=== PATIENT | male | born 1980 ===

== ENCOUNTER 2018-05-11 14:17 | Emergency (ER) | payer BC ==
[2018-05-11] MEDS ORDERED: KETOROLAC 30 MG/ML INJ ONE (16:24)
--- NOTE | 2018-05-11 16:34 | RAD REPORT ---
EXAM DESCRIPTION: RAD - Chest Single View - 05/11/2018 3:49 pm CLINICAL HISTORY: Persistent chest pain following trauma COMPARISON: None. TECHNIQUE: AP portable chest image was obtained 1534 hours . FINDINGS: Lungs are clear. Heart and vasculature are normal. No measurable pleural effusion and no p neumothorax. No acute bony abnormality seen. No acute aortic findings suspected. IMPRESSION: No acute cardiopulmonary process.
--- NOTE | 2018-05-11 17:44 | EDPHYS ---
Physician Documentation [facility] Name: Duke Woodard Age: 38 yrs Sex: Male : 1980 Arrival Date: 05/11/2018 Time: 14:22 Bed 9 Private MD: Danny Solorzano T ED Physician Rubio Disla HPI: 05/11 15:06 This 38 yrs old Unknown Male presents to ER via Ambulatory with complaints of Rib Pain. [facility] 15:06 The patient or guardian reports chest pain that is located primarily in the anterior [facility] chest wall. Onset: The symptoms/episode began/occurred acutely, yesterday. The pain does not radiate. The chest pain is described as sharp. This is a 38 year old male with no chronic medical conditions that presents to the ED with complaints of left sided chest pain after attempting to pull a bolt off a truck. Patient denies shortness of breath. Symptoms are worsened with movement. . Historical: - Allergies: 14: No Known Allergies; sg - Home Meds: 14:28 None [Active]; sg - PMHx: 14:28 None; sg - PSHx: 14:28 Appendectomy; sg - Immunization history:: Adult Immunizations up to date. - Social history:: Smoking status: Patient uses tobacco products, smokes one-half pack cigarettes per day. - Ebola Screening: : Patient negative for fever greater than or equal to 101.5 degrees Fahrenheit, and additional compatible Ebola Virus Disease symptoms Patient denies exposure to infectious person Patient denies travel to an Ebola-affected area in the 21 days before illness onset No symptoms or risks identified at this time. ROS: 15:06 Constitutional: Negative for fever, chills, and weight loss. jmm 15:06 Respiratory: Negative for shortness of breath, cough, wheezing, and pleuritic chest pain, Abdomen/GI: Negative for abdominal pain, nausea, vomiting, diarrhea, and constipation, MS/Extremity: Negative for injury and deformity. 15:06 Cardiovascular: Positive for chest pain, with movement. 15:06 All other systems are negative. Exam: 15:06 Constitutional: This is a well developed, well nourished patient who is awake, alert, jmm and in no acute distress. Head/Face: atraumatic. Eyes: EOMI, no conjunctival erythema appreciated ENT: Moist Mucus Membranes Neck: Trachea midline, Supple Chest/axilla: Normal chest wall appearance and motion. 15:06 Abdomen/GI: Non distended, soft Back: Normal ROM Skin: General appearance color normal MS/ Extremity: Moves all extremities, no obvious deformities appreciated, no edema noted to the lower extremities Neuro: Awake and alert, normal gait Psych: Behavior is normal, Mood is normal, Patient is cooperative and pleasant 15:06 Chest/axilla: Palpation: tenderness, that totally reproduces the patient's complaints. 15:06 Cardiovascular: Rate: normal, Rhythm: regular. 15:06 Cardiovascular: pain is reproduced on movement. 15:06 Respiratory: the patient does not display signs of respiratory distress, Respirations: normal, Breath sounds: are clear throughout. Vital Signs: 14:26 Pulse 107; Resp 17; Temp 97.7; Pulse Ox 100% ; Weight 97.52 kg; Height 6 ft. 3 in. sg (190.50 cm); 14:27 BP 150 / 92; sg 16:30 BP 132 / 80; Pulse 89; Resp 16; Pulse Ox 100% on R/A; hb 14:26 Body Mass Index 26.87 (97.52 kg, 190.50 cm) sg MDM: 15:06 Patient medically screened. jennifer 17:22 Data reviewed: vital signs, nurses notes. Counseling: I had a detailed discussion with osbaldo the patient and/or guardian regarding: the historical points, exam findings, and any diagnostic results supporting the discharge/admit diagnosis, radiology results, the need for outpatient follow up, to return to the emergency department if symptoms worsen or persist or if there are any questions or concerns that arise at home. ED course: Chest pain appears most likely musculoskeletal, pain is reproducible, cxr negative. LENORA appears consistent with chest wall muscle strain. Patient is advised to follow up with orthopedics for reevaluation and otherwise given strict return precautions. patient understood and agrees with the plan of care. . 05/11 15:15 Order name: Chest Single View XRAY; Complete Time: 16:41 [facility] 05/11 16:47 Order name: EKG - Nurse/Tech; Complete Time: 17:31 [facility] Administered Medications: 16:16 Drug: Ketorolac 30 mg Route: IM; Site: left deltoid; hb 17:00 Follow up: Response: No adverse reaction; Pain is decreased hb Disposition: 05/11/18 17:43 Discharged to Home. Impression: Chest Wall Strain. - Condition is Stable. - Discharge Instructions: Chest Wall Pain. - Prescriptions for Ibuprofen 800 mg Oral Tablet - take 1 tablet by ORAL route every 8 hours As needed take with food; 30 tablet. orphenadrine citrate 100 mg Oral Tablet Sustained Release - take 1 tablet by ORAL route 2 times per day As needed; 20 tablet. - Medication Reconciliation Form, Thank You Letter, Antibiotic Education, Prescription Opioid Use form. - Follow up: Danny Solorzano MD; When: 2 - 3 days; Reason: Recheck today's complaints, Continuance of care, Re-evaluation by your physician. Follow up: Gerardo Wilson MD; When: 1 - 2 days; Reason: Recheck today's complaints, Continuance of care, Re-evaluation by your physician. Addendum: 05/13/2018 07:45 Co-signature as Attending Physician, Rubio Disla MD I agree with the assessment and c severino plan of care. Signatures: Dispatcher [employer] EDEdison Devine, SAVI RN Rubio Strong MD MD cha Mickail, Joel, PA PA Clarita Bedolla, SAVI RN hb Corrections: (The following items were deleted from the chart) 05/11 18:09 17:43 05/11/2018 17:43 Discharged to Home. Impression: Chest Wall Strain. Condition is hb Stable. Forms are Medication Reconciliation Form, Thank You Letter, Antibiotic Education, Prescription Opioid Use. Follow up: Danny Solorzano; When: 2 - 3 days; Reason: Recheck today's complaints, Continuance of care, Re-evaluation by your physician. Follow up: Gerardo Wilson; When: 1 - 2 days; Reason: Recheck today's complaints, Continuance of care, Re-evaluation by your physician. osbaldo
--- NOTE | 2018-05-11 17:44 | ER ---
Nurse's Notes [facility] Name: Duke Woodard Age: 38 yrs Sex: Male : 1980 Arrival Date: 05/11/2018 Time: 14:22 Bed 9 Private MD: Danny Solorzano T Diagnosis: Chest Wall Strain Presentation: 05/11 14:28 Acuity: ASH 4 sg 14:28 Presenting complaint: Patient states: Was working on his car yesterday, was trying to sg get a bolt loose and the wrench popped off causing him to hurt his left chest and left rib area. Transition of care: patient was not received from another setting of care. Onset of symptoms was May 11, 2018. Risk Assessment: Do you want to hurt yourself or someone else? Patient reports no desire to harm self or others. Initial Sepsis Screen: Does the patient meet any 2 criteria? No. Patient's initial sepsis screen is negative. Does the patient have a suspected source of infection? No. Patient's initial sepsis screen is negative. Care prior to arrival: None. 14:28 Method Of Arrival: Ambulatory sg Historical: - Allergies: 14:23 No Known Allergies; sg - Home Meds: 14:28 None [Active]; sg - PMHx: 14:28 None; sg - PSHx: 14:28 Appendectomy; sg - Immunization history:: Adult Immunizations up to date. - Social history:: Smoking status: Patient uses tobacco products, smokes one-half pack cigarettes per day. - Ebola Screening: : Patient negative for fever greater than or equal to 101.5 degrees Fahrenheit, and additional compatible Ebola Virus Disease symptoms Patient denies exposure to infectious person Patient denies travel to an Ebola-affected area in the 21 days before illness onset No symptoms or risks identified at this time. Screenin:00 Abuse screen: Denies threats or abuse. Denies injuries from another. Nutritional hb screening: No deficits noted. Tuberculosis screening: No symptoms or risk factors identified. Fall Risk None identified. Assessment: 14:45 General: Appears in no apparent distress. Behavior is calm, cooperative. Pain: Pain hb currently is 5 out of 10 on a pain scale. Neuro: Level of Consciousness is awake, alert, obeys commands, Oriented to person, place, time, situation. Cardiovascular: Capillary refill < 3 seconds. Respiratory: Airway is patent Respiratory effort is even, unlabored, Respiratory pattern is regular, symmetrical. GI: No signs and/or symptoms were reported involving the gastrointestinal system. : No signs and/or symptoms were reported regarding the genitourinary system. EENT: No signs and/or symptoms were reported regarding the EENT system. Derm: Skin is intact, is healthy with good turgor. Musculoskeletal: Reports left sided rib pain. 15:45 Reassessment: Patient appears in no apparent distress at this time. Patient and/or hb family updated on plan of care and expected duration. Pain level reassessed. Patient is alert, oriented x 3, equal unlabored respirations, skin warm/dry/pink. 16:17 Reassessment: Patient appears in no apparent distress at this time. Patient and/or hb family updated on plan of care and expected duration. Pain level reassessed. Patient is alert, oriented x 3, equal unlabored respirations, skin warm/dry/pink. 17:15 Reassessment: Patient appears in no apparent distress at this time. Patient and/or hb family updated on plan of care and expected duration. Pain level reassessed. Patient is alert, oriented x 3, equal unlabored respirations, skin warm/dry/pink. Vital Signs: 14:26 Pulse 107; Resp 17; Temp 97.7; Pulse Ox 100% ; Weight 97.52 kg; Height 6 ft. 3 in. sg (190.50 cm); 14:27 BP 150 / 92; sg 16:30 BP 132 / 80; Pulse 89; Resp 16; Pulse Ox 100% on R/A; hb 14:26 Body Mass Index 26.87 (97.52 kg, 190.50 cm) ED Course: 14:22 Patient arrived in ED. mr 14:22 Danny Solorzano MD is Private Physician. mr 14:23 Arm band placed on. sg 14:28 Triage completed. sg 15:02 [facility] 15:02 Rubio Disla MD is Attending Physician. jmm 15:50 Chest Single View XRAY In Process Unspecified. EDMS 16:11 Patient has correct armband on for positive identification. Call light in reach. hb 17:42 Danny Solorzano MD is Referral Physician. jmm 17:43 Gerardo Wilson MD is Referral Physician. jmm 17:55 EKG done, by ED staff, reviewed by Rubio Dsila MD. em1 18:09 No provider procedures requiring assistance completed. Patient did not have IV access hb during this emergency room visit. Administered Medications: 16:16 Drug: Ketorolac 30 mg Route: IM; Site: left deltoid; hb 17:00 Follow up: Response: No adverse reaction; Pain is decreased hb Outcome: 17:43 Discharge ordered by . osbaldo 18:09 Discharged to home ambulatory. hb 18:09 Condition: stable 18:09 Discharge instructions given to patient, Instructed on discharge instructions, follow up and referral plans. medication usage, Demonstrated understanding of instructions, follow-up care, medications, Prescriptions given X 2. 18:09 Patient left the ED. hb Signatures: Dispatcher [employer] EDMS Edison Campbell, RN RN Bony Rodas PA PA jmm Rivera, Mary Tyrel, Wily em1 Clarita Marcos RN RN hb
[2018-05-11 18:39] VITALS: TEMP 97.7; O2SAT 100
[2018-05-11 18:42] VITALS: BP 132/80
--- NOTE | 2018-05-12 12:35 | EKG ---
Test Date: 2018-05-11 Test Time: 17:23:31 Virologist: EWA MEASUREMENT RESULTS: Intervals: Rate: 68 HI: 154 QRSD: 98 QT: 386 QTc: 410 [place]: P: 58 HI: 154 QRS: 51 T: 51 INTERPRETIVE STATEMENTS: Normal sinus rhythm Normal ECG No previous ECG available for comparison Electronically Signed On 05-12-18 12:34:44 CUSTOMER EXPERIENCE ANALYST by Bradley Lo
== END 2018-05-11 18:09 | disposition home or self-care (01) ==
LOC: ER 14:17
DX: S29.011A Strain of muscle and tendon of front wall of thorax, initial encounter (principal); X50.9XXA Other and unspecified overexertion or strenuous movements or postures, initial encounter; F17.210 Nicotine dependence, cigarettes, uncomplicated
CPT/HCPCS: 71045; 93005; 96372; 99284